=== PATIENT | male | born 1995 | race Caucasian/White ===

== ENCOUNTER 2025-10-19 20:39 | Emergency (ER) | payer BC, SELFPAY ==
[2025-10-19 20:42] VITALS: BP 143/77
[2025-10-19] MEDS: VALIUM 5 MG PO (23:20)
[2025-10-19] MEDS: TORADOL 30 MG IV (23:20)
--- NOTE | 2025-10-20 00:18 | ED.GENMED ---
History of Present Illness
General
Chief Complaint: Back Pain
Source: patient
Exam Limitations: none
Time Seen by Provider: 10/19/25 22:35
Nursing documentation reviewed up to this point in time: agreed with
History of Present Illness
History of Present Illness:
30-year-old male presenting to the emergency department today with concerns of left-sided low back pain rating down his left leg after he ran after his dog that ran after a squirrel set up quickly felt sharp pain that has been gradually worsening
over the past few hours. Denies any significant urinary or bowel changes. Denies similar symptoms in the past no chronic medical conditions.
Review of Systems
Review of Systems
Allergies reviewed?: Yes
All Other Systems: ROS reviewed and negative except as documented in HPI and ROS
Phy Exam
Physical Exam
Physical Exam:
GENERAL: Alert , in no apparent distress
EYE: pupils equal and reactive
NECK: Supple, no significant adenopathy.
ENT: o/p clr, mmm.
CARDIAC: Regular rate and rhythm .
LUNGS: Clear breath sounds bilaterally, no acute respiratory distress, no wheezes/rales/rhonchi
ABDOMEN: Soft, without focal tenderness, no r/g, no cvat
NEUROLOGICAL: Alert and oriented, no focal neuro deficits normal neurologic evaluation of the lower extremities
SKIN: Warm and dry, skin intact.
MUSCULOSKELETAL: No edema, well perfused. Moving extremities normally
PSYCH: Normal and appropriate interaction.
Course
Orders/Labs/Results
Orders:
Orders
10/19/25 23:02
Diazepam [Valium] 5 mg PO NOW STA
Ketorolac [Toradol] 30 mg IV NOW STA
Hip, Left 2-3 Views [CR Hip - LT w/wo Pel 2-3 Vw*] Urgent
Comment:
Reason For Exam: hip pain
Include a pelvis x-ray?: Yes
Lumbar Spine, 2 or 3 View [CR Lumbar Spine 2 Or 3 Views] Urgent
Comment:
Reason For Exam: back pain
10/20/25 00:44
Oxycodone/Acetaminophen [Percocet 5/325] 2 tablet PO NOW STA
Vital Signs
Initial and Last Documented VS:
Initial Vital Signs
Temp Pulse Resp BP Pulse Ox
98.4 F 71 16 143/77 100
10/19/25 20:42 10/19/25 20:42 10/19/25 20:42 10/19/25 20:42 10/19/25 20:42
Last Documented Vital Signs
Temp Pulse Resp BP Pulse Ox
98.4 F 68 20 115/70 100
10/19/25 20:42 10/20/25 00:37 10/20/25 00:37 10/20/25 00:37 10/20/25 00:37
MDM/Problems Addressed
MDM/Problems Addressed:
30-year-old male presenting to the emergency department today with concerns of the pain to his low back rating down his left leg that occurred abruptly after chasing after his his dog chased after a squirrel. Pain has been slightly worsening over
the past few hours and he has noticed some spasm as well. He was given Valium as well as Toradol with some improvement of symptoms. X-ray did not show any emergent findings. Symptoms consistent with soft tissue injury. He was advised for
outpatient follow-up for this. Return precautions given.
*Pulse Oximetry
SaO2: 98
Oxygen Mode of Delivery: Room air
Patient hypoxic: no (100)
*Critical Care Note
Total Time (30-74mins, 75-104mins- exclusive of procedures): Not Applicable
ED Attending Note
-
Portions of this chart may have been created with voice recognition software.� Occasional wrong word or��sound alike� substitutions may have occurred due to the inherent limitations of voice recognition software.
Discharge Plan
Departure
Patient Disposition: Home (Routine Discharge)
Date of Disposition: 10/20/25
Time of Disposition: 00:58
Patient with high blood pressure during this ER visit?: No
Condition: Good
Covid-19: Not Applicable
Discharge Problem:
Back pain, Radicular low back pain
Instructions: Sciatica (DC)
Prescriptions:
New
oxycodone-acetaminophen [Endocet] 5-325 mg tablet
1 tab PO Q6H PRN (Reason: Pain) Qty: 7 0RF
ibuprofen 600 mg tablet
600 mg PO Q8H PRN (Reason: Pain) Qty: 14 0RF
Referrals:
NONE,* [Family Provider, Internal Medicine]
Danny Arora MD [Active, Anesthesiology] - Follow up in 10 days
Activity Restrictions/Additional Instructions:
You came to the emergency department today with concerns of back and leg pain. This is likely from a pulled muscle or herniated disc of your low back. Here your x-rays did not show any emergent findings. Please take the prescribed medications
over the next few days with hopeful improvement of symptoms. Please do not drive or operate machinery while taking the opioid medication as can cause drowsiness. Return for any worsening, new or concerning symptoms.
Interventions
Interventions:
*General Assessment Last Done: 10/19/25 23:28
*Neglect/Abuse Screening Last Done: 10/19/25 20:45
*ED COVID-19 Vaccine History Last Done: 10/19/25 23:28
*ED Influenza Vaccine History Last Done: 10/19/25 23:28
*Risk Screen - Suicide (C-SSRS) Last Done: 10/19/25 20:45
ED-Musculoskeletal Assessment Last Done: 10/19/25 23:28
Discharge Date and Time
Print Language: [place]
[2025-10-20 00:37] VITALS: BP 115/70
[2025-10-20] MEDS: PERCOCET 5/325 2 TABLET PO (00:57)
== END 2025-10-20 01:30 | disposition home or self-care (01) ==
LOC: EMR 20:39
PROVIDERS: EMERGENCY PHYSICIAN Student in an Organized Health Care Education/Training Program
DX: M54.16 Radiculopathy, lumbar region (principal)
CPT/HCPCS: 99284; 96374; 72100; 73502